=== PATIENT | male | born 2000 | race Two or more races ===

== ENCOUNTER 2020-06-28 10:14 | Emergency (ER) | payer MEDICAID ==
[~2020-06-28] VITALS: Ht 170.2 cm; Wt 63.5 kg
[2020-06-28] MEDS ORDERED: HYDROMORPHONE 1 MG/1 ML DISP.SYRIN IV ONE ×3 (10:45→12:00)
[2020-06-28] MEDS ORDERED: ONDANSETRON 4 MG/2 ML VIAL IV ONE (10:45)
[2020-06-28] MEDS ORDERED: TDAP DIPH,PERTUSS,TET VAC/PF 0.5 ML DISP.SYRIN IM ONE ×2 (10:45→10:53)
[2020-06-28] MEDS ORDERED: CEFTRIAXONE 1 G in IV DEXTROSE 5% 50 ML IV ONE (10:45)
[2020-06-28] MEDS ORDERED: CEFTRIAXONE /D5W 50ML IVPB **ER PYXIS IV ONE (10:53)
[2020-06-28] MEDS ORDERED: HYDROMORPHONE 1 MG/1 ML DISP.SYRIN ONE ×3 (10:53→11:56)
[2020-06-28] MEDS ORDERED: ONDANSETRON 4 MG/2 ML VIAL ONE (10:53)
--- NOTE | 2020-06-28 10:55 | NUR ---
Pt was using a manual saw and lacerated 2nd to 5th fingers on left hand, more significant on middle and ring fingers (both roughly 3 cm in length). Started IV 20g right AC, administered pain meds, pain 10/10. Pt has no other complaints, only minor distress noted.
--- NOTE | 2020-06-28 12:14 | NUR ---
Called [employer] and spoke to Leonidas who requested Facesheet to be fax to .
--- NOTE | 2020-06-28 13:59 | NUR ---
Patient and patient family requested to be D/C'ed AMA. DR Murillo aware.
--- NOTE | 2020-06-28 14:02 | NUR ---
IV removed. Catheter intact and site benign. Pressure and 4x4 gauze applied to site. No bleeding noted.
--- NOTE | 2020-06-28 14:06 | NUR ---
Patient does not wish to proceed with medical care recommended by Dr. Szymanski ). Patient given information related to possible complications, up to and including , which could occur as a result of leaving the hospital at this time. Patient verbalizes understanding of risks involved due to leaving against medical advice. Patient has signed AMA form.
[2020-06-28 14:42] VITALS: BP 124/77
== END 2020-06-28 14:46 | disposition left against medical advice (07) ==
LOC: ER 10:14
DX: S61.211A Laceration without foreign body of left index finger without damage to nail, initial encounter (principal); S61.213A Laceration without foreign body of left middle finger without damage to nail, initial encounter; S61.215A Laceration without foreign body of left ring finger without damage to nail, initial encounter; W27.8XXA Contact with other nonpowered hand tool, initial encounter; Y93.89 Activity, other specified; Y92.019 Unspecified place in single-family (private) house as the place of occurrence of the external cause; Z20.822 Contact with and (suspected) exposure to COVID-19
CPT/HCPCS: 73130; 87426; 90471; 90715; 96365; 96375; 99284; J0696; J1170 ×3; J2405; A4217; A4663; J7030